=== PATIENT | female | born 1950 | race Caucasian/White ===

== ENCOUNTER 2019-08-01 08:29 | Observation (INO) | payer OTHER ==
[~2019-08-01] VITALS: Ht 165.1 cm; Wt 62.6 kg
[2019-08-01 08:58] VITALS: BP 144/67
[2019-08-01] MEDS ORDERED: AMLODIPINE BESY10 MG PO (09:04)
[2019-08-01] MEDS ORDERED: PLAVIX 75 MG TA75 MG PO (09:05)
[2019-08-01] MEDS ORDERED: VASOTEC20 MG PO (09:05)
[2019-08-01] MEDS ORDERED: FLEXERIL PO (09:05)
[2019-08-01] MEDS ORDERED: NEURONTIN100 MG PO (09:06)
[2019-08-01] MEDS ORDERED: PROTONIX 20 MG20 MG PO (09:06)
[2019-08-01] MEDS ORDERED: OXYBUTYNIN 5 MG5 M2 PO (09:06)
[2019-08-01] MEDS ORDERED: REQUIP 1 MG TABL1 M1 PO (09:07)
--- NOTE | 2019-08-01 17:09 | NUR ---
1630: PT GOTTEN UP TO AMBULATE AND GROIN RECHECKED AT THAT TIME. HEMATOMA DEVLEOPED, PRESSURE HELD BY JASMIN POLLACK. 5 MIN LATER, HEMATOMA REFORMED AND RN HELD PRESSURE FOR ADDITIONAL 5 MIN. MD LONG NOTIFED, PT TO ADMITTED FOR OBS AND US IN AM. DINORA MCDONALD MADE AWARE. NO ADDITIONAL BLEEDING NOTED AT THIS TIME AND CHECKS PREFORMED Q 5 MIN X 1 HOUR. UPDATED PT ON POC, VERBALIZES UNDERSTAND. VSS. WILL CONTINUE TO MONITOR.
--- NOTE | 2019-08-01 17:14 | EKG ---
[address] [place] [address] ELECTROCARDIOGRAM REPORT Name: AYSHA HOPE Room #: 170-2 [facility]#: [id number] Admission: 08/01/19 Attend Phys: Andry Salcedo MD Discharge: Date of : 46 Report #: [id number] THIS REPORT FOR: //name// [facility] Test Date: 2019-08-01 Test Time: 09:16:33 Pat Name: ASYHA HOPE Department: Room: 170 Gender: F Desk Interviewer: Dieter GRADY : 1950 Requested By: Dangelo Rosales Order Number: [id number] MD: Desmond Renae Measurements Intervals Morrison Rate: 77 P: 27 WV: 202 QRS: 30 QRSD: 97 T: 44 QT: 379 QTc: 429 Interpretive Statements Sinus rhythm Normal tracing No previous ECG available for comparison Electronically Signed On 08-01-2019 17:14:39 CDT by Desmond Renae [email or web address] <ELECTRONICALLY SIGNED> By: Desmond Renae MD, [facility] 08/01/19 1714 0916 0916 Desmond Renae MD, FACC /EPI
[2019-08-01 18:15] VITALS: BP 144/82
[2019-08-01 18:30] VITALS: BP 143/75
--- NOTE | 2019-08-01 18:31 | NUR ---
ASSUMED CARE AT 1800, SHIFT ASSESSEMNT DONE, RIGHT GROIN SITE HAS MYNX CLOSURE DEVICE, CLEAN, DRY, INTACT, SOFT TO TOUCH, NO HEMATOMA. BED REST WILL BE DONE BY 1945. WILL CONTINUE TO ASSESS AND ASSIST WITH ADLs NEEDED.
[2019-08-01 18:43] VITALS: BP 144/81
[2019-08-01 20:15] VITALS: BP 118/73
[2019-08-02 04:55] VITALS: BP 96/57
[2019-08-02 04:56] LABS: CREATININE 0.8 mg/dL (0.6-1.0)
[2019-08-02 05:45] LABS: HEMATOCRIT 37.1 % (37.0-47.0); HEMOGLOBIN 12.5 gm/dL (12.0-15.0); MCH 31.5 pg (26.0-34.0); MCHC 33.8 g/dL (28.0-37.0); MCV 93.2 fL (80.0-100.0); RBC 3.98 mil/uL (4.20-5.00); RDW 13.2 % (10.5-14.5); WBC 5.3 thou/uL (4.0-11.0)
[2019-08-02] MEDS ORDERED: AMLODIPINE BESY10 MG PO (07:42)
[2019-08-02] MEDS ORDERED: ASA81BEC PO (07:42)
--- NOTE | 2019-08-02 08:36 | NUR ---
PT OFF BEDREST FOR 2ND TIME AND R GROIN PUFFED UP AGAIN REMAINED SOFT KEPT PT ON BED REST PRN PAIN MEDS GIVEN, FIRMNESS DEVELOPED UNDER DRESSING PRESSURE HELDFREQUENT VITALS SHEET ON CHART, FIRMNESS RESOLVED PT RESTING QUIETLY IN ROOM TILL BACK PAIN DEVELOPED THIS AM PT STATES GROIN IS PAIN FREE, AND REMAINS SOFT, PT UP THE BATHROOM AND NO CHANGE IN GROIN SITE. VSS, REPORT GIVEN TO NEXT SHIFT TO CON'T TWITH PPOC.
[2019-08-02 10:05] VITALS: BP 96/57
--- NOTE | 2019-08-02 11:27 | NUR ---
ASSUMMED PT CARE AT APPROXIMATELY 0700. PT A&O X4. ASSESSMENT CHARTED. FALL PRECAUTIONS IN PLACE. PT DENIES CHEST PAIN. PT DENIES SOB. PT DENIES ACUTE PAIN. PT DISCHARGING HOME C SELF CARE. IV DC. TELE DC. R GROIN CLEAN, DRY C NO PAIN. NO HEMATOMA. PT AMBULATES INDEPENDENT/STEADY. PT'S DAUGHTER DRIVING HOME. PT RECEIVED DISCHARGE EDUCATION. PT STATED UNDERSTANDING AND DENIED HAVING FURTHER QUESTIONS. PT AWAITING ARRIVAL OF HOSPITAL TRANSPORT TO TAKE HER OFF UNIT. PT DENIES HAVING FURTHER CONCERNS.
--- NOTE | 2019-09-12 07:51 | CATHLAB ---
[facility] [place] [address] INVASIVE PROCEDURE REPORT Name: AYSHA HOPE Scott Room #: 212-P [facility]#: [id number] Admission: 08/01/19 Attend Phys: Andry Salcedo, Discharge: 08/02/19 Date of : 46 Report #: [id number] THIS REPORT FOR: //name// Sex/Age : F/69Y Height/Weight : cm/kg Patient Name : AYSHA HOPE Study Date : 2019-08-01 13:07:07 BSA : ? Requesting Name : IR ARTERIOGRAM AORTA ARCH Date of : 1950 Request Doctor : DANGELO RIVREA, Department : RAD --< Approved Addendum > Study performed: 08/01/2019 13:07:07 Patient Details Patient Status: Out-Patient Room #: The patient is a 69 year-old female Event Personnel Dangelo Rivera Strategies Analyst, Lilo Mitchell RN RN, Niru Rodriguez, Desean Knott RTR Scrub Procedures Performed Left Heart Cath w/or w/o Coronaries [id number] [facility] Hemostasis w/ Mynx Indication Chest pain Procedure Narrative The patient was brought electively to the Cardiac Catheterization Laboratory and was prepped and draped in a sterile manner. A 6fr Brite Tip sheath was inserted into the RFA^. Coronary angiography was performed using coronary diagnostic catheters. The right coronary system was accessed and visualized with a JR 4 catheter. The left coronary system was accessed and visualized with a JL 4 catheter. The left ventricle was accessed and visualized with a Pigtail catheter. Left ventriculogram was performed in BURGER projection. Closure device was deployed with a 6 Fr Mynx. The patient tolerated the procedure well and there were no complications associated with the procedure. There was no hematoma. Intraoperative Conscious Sedation Fentanyl 100 mcg Versed 2.[address] [address] INVASIVE PROCEDURE REPORT Name: AYSHA HOPE Room #: 212-P [facility]#: [id number] Admission: 08/01/19 Attend Phys: Andry Salcedo, Discharge: 08/02/19 Date of : 46 Report #: [id number] Fluoro Time: 9.80 minutes Dose: DAP 68675.00 cGycm2 Contrast Type and Amount: Visipaque 140 ml Conclusion #1 normal left jugular size and systolic function EF 60% #2 left main widely patent giving rise to LAD and circumflex #3 LAD with mild irregularity is a type I stops proximal to the apex. #4 circumflex OM nondominant but moderate size no occlusive disease #5 dominant right coronary artery with mild irregularities no occlusive disease noted Conditions and plan continue aggressive risk factor modification. No indication for coronary intervention. Electronically Approved : 09/12/2019 07:40:17 --< Approved Report > Study performed: 08/01/2019 13:07:07 Patient Details Patient Status: Out-Patient Room #: The patient is a 69 year-old female Event Personnel Dangelo Rivera Strategies Analyst, Lilo Mitchell RN RN, Niru Rodriguez Monitor, Desean Knott RTR Scrub Procedures Performed Left Heart Cath w/or w/o Coronaries [id number] [facility] Hemostasis w/ Mynx Indication Chest pain Procedure Narrative The patient was brought electively to the Cardiac Catheterization Laboratory and was prepped and draped in a sterile manner. A 6fr Brite Tip sheath was inserted into the RFA^. Coronary angiography was performed using coronary diagnostic catheters. The right coronary system was accessed and visualized with a JR 4 catheter. The left coronary system was accessed and visualized with a JL [address] [address] INVASIVE PROCEDURE REPORT Name: HERMINIAAYSHA Room #: 212-P [facility] .R.#: [id number] Admission: 08/01/19 Attend Phys: Andry Salcedo, Discharge: 08/02/19 Date of : 46 Report #: [id number] catheter. The left ventricle was accessed and visualized with a Pigtail catheter. Left ventriculogram was performed in BURGER projection. Closure device was deployed with a 6 Fr Mynx. The patient tolerated the procedure well and there were no complications associated with the procedure. There was no hematoma. Intraoperative Conscious Sedation Fentanyl 100 mcg Versed 2.0 mg Fluoro Time: 9.80 minutes Dose: DAP 25346.00 cGycm2 Contrast Type and Amount: Visipaque 140 ml Conclusion #1 normal left jugular size and systolic function EF 60% #2 left main widely patent giving rise to LAD and circumflex #3 LAD with mild irregularity is a type I stops proximal to the apex. #4 circumflex OM nondominant but moderate size no occlusive disease #5 dominant right coronary artery with mild irregularities no occlusive disease noted Conditions and plan continue aggressive risk factor modification. No indication for coronary intervention. By: 1718 0747 Dangelo Rivera MD, FACC /JW
== END 2019-08-02 11:33 | disposition home or self-care (01) ==
LOC: CATH 08:29 → EROBS 16:44 → 2N 17:59 → ENTRNSPT 08-02 11:26 → EDTRNSPTSTS 08-02 11:30 → 2N 08-02 11:33
PROVIDERS: Nurse Practitioner Adult Health; ADMIT Nuclear Medicine Nuclear Cardiology
DX: I25.10 Atherosclerotic heart disease of native coronary artery without angina pectoris (principal); I65.29 Occlusion and stenosis of unspecified carotid artery; I10 Essential (primary) hypertension; E78.5 Hyperlipidemia, unspecified; I73.9 Peripheral vascular disease, unspecified; J44.9 Chronic obstructive pulmonary disease, unspecified; F17.200 Nicotine dependence, unspecified, uncomplicated; Z79.82 Long term (current) use of aspirin; Z79.899 Other long term (current) drug therapy